=== PATIENT | male | born 2000 | race African-American/Black ===

== ENCOUNTER 2021-11-10 17:03 | Outpatient (CLI) | payer OTHER | END 2021-11-10 17:04 | disposition EMS.NT | LOC: EMS 17:03 | DX: R07.9 Chest pain, unspecified (principal) ==

== ENCOUNTER 2021-11-10 17:53 | Emergency (ER) | payer OTHER ==
[2021-11-10 18:35] LABS: BASOPHILS % (AUTO) 0.5 %; EOSINOPHILS % (AUTO) 0.3 %; HCT - HEMATOCRIT 48.3 % (42.0-52.0); HGB - HEMOGLOBIN 16.4 g/dL (14.0-18.0); LYMPHOCYTES # (AUTO) 2.3 10^3/uL (1.5-3.5); LYMPHOCYTES % (AUTO) 27.1 %; MEAN CORPUSCULAR VOLUME 85.5 fL (80.0-94.0); MEAN PLATELET VOLUME 10.8 fL (7.4-11.4); MONOCYTES # (AUTO) 0.3 10^3/uL (0.0-1.0); MONOCYTES % (AUTO) 3.6 %; NEUTROPHILS # (AUTO) 5.9 10^3/uL (1.5-6.6); NEUTROPHILS % (AUTO) 68.3 %; PLT - PLATELET COUNT 219 10^3/uL (130-450); RED BLOOD COUNT 5.65 10^6/uL (4.70-6.10); RED CELL DISTRIBUTION WIDTH 12.2 % (12.0-15.0); WHITE BLOOD COUNT 8.6 x10^3/uL (4.8-10.8)
--- NOTE | 2021-11-10 18:42 | XRAY Report ---
PROCEDURE: Chest 1 View X-Ray INDICATIONS: Chest Pain TECHNIQUE: One view of the chest was acquired. COMPARISON: None. FINDINGS: Surgical changes and devices: None. Lungs and pleura: No pleural effusions or pneumothorax. Right costophrenic angle is incompletely vis ualized. Lungs are clear. Mediastinum: Mediastinal contours appear normal. Heart size is normal. Bones and chest wall: No suspicious bony lesions. Overlying soft tissues appear unremarkable. IMPRESSION: No acute cardiopulmonary abnormality. Reviewed by: Yaya Akins MD on 11/10/2021 6:40 PM PDT Approved by: Yaya Akins MD on 11/10/2021 6:40 PM PDT Station ID: [id number]
[2021-11-10] MEDS ORDERED: LIDOCAINE VISCOUS 2% 15 ML UDC MM STA (18:43)
[2021-11-10] MEDS ORDERED: MAG HYDROX/AL HYDROX/SIMETH 30 ML UDC PO STA (18:43)
--- NOTE | 2021-11-10 18:45 | ED Physician Documentation ---
PD HPI CHEST PAIN - Stated complaint Stated Complaint: CP - Chief complaint Chief Complaint: Cardiac - History obtained from History obtained from: Patient - Additional information Additional information: Previously healthy 21-year-old gentleman with no history of heart disease. He vapes but does not smoke. Last week developed internal chest pressure that gets worse after eating heavy food. He did have a night of heavy drinking a few nights ago and that made the pain sharper after word when he got over the hangover the next day. No family history of heart disease. No recent travel. No shortness of breath. Pain is not exertional. Review of Systems Ten Systems: 10 systems reviewed and negative Cardiac: reports: Chest pain / pressure. denies: Palpitations Respiratory: denies: Dyspnea, Cough PD PAST MEDICAL HISTORY - Present Medications Home Medications: Ambulatory Orders Medication Instructions Recorded Confirmed Bupropion HCl [Wellbutrin Xl] 300 mg PO DAILY 11/10/21 11/10/21 Finasteride [Propecia] 1 mg PO DAILY 11/10/21 11/10/21 Omeprazole 40 mg PO DAILY #30 cap 11/10/21 - Allergies Allergies/Adverse Reactions: Allergies Allergy/AdvReac Type Severity Reaction Status Date / Time No Known Drug Allergies Allergy Verified 11/10/21 18:02 PD ED PE NORMAL - Vitals Vital signs reviewed: Yes - General General: Alert and oriented X 3, No acute distress - HEENT HEENT: PERRL, EOMI - Neck Neck: Supple, no meningeal sign, No bony TTP - Cardiac Cardiac: RRR, No murmur - Respiratory Respiratory: No respiratory distress, Clear bilaterally - Abdomen Abdomen: Normal bowel sounds, Soft, Non tender - Back Back: No CVA TTP, No spinal TTP - Derm Derm: Normal color, Warm and dry - Extremities Extremities: No edema, No calf tenderness / cord - Neuro Neuro: Alert and oriented X 3, Normal speech Results - Vitals Vitals: Vital Signs - 24 hr 11/10/21 11/10/21 17:58 18:01 Temperature 36.3 C L 36.6 C Heart Rate 72 72 Respiratory 18 18 Rate Blood Pressure 161/91 H 161/91 H O2 Saturation 99 99 Oxygen O2 Source Room air - EKG (time done) 1801 Rate: Rate (enter#) (71) Rhythm: NSR [place]: Normal Intervals: Normal [place] QRS: Normal Ischemia: ST elevation c/w repol. No: ST elevation c/w ischemia, ST depression - Labs Labs: Laboratory Tests 11/10/21 11/10/21 11/10/21 18:30 18:30 18:30 WBC 8.6 RBC 5.65 Hgb 16.4 Hct 48.3 MCV 85.5 MCH 29.0 MCHC 34.0 RDW 12.2 Plt Count 219 MPV 10.8 Neut # (Auto) 5.9 Lymph # (Auto) 2.3 [place] # (Auto) 0.3 Eos # (Auto) 0.0 Baso # (Auto) 0.0 Absolute Nucleated RBC 0.00 Nucleated RBC % 0.0 Sodium 141 Potassium 3.9 Chloride 106 Carbon Dioxide 24 Anion Gap 11.0 BUN 17 Creatinine 0.8 Estimated GFR (MDRD) 121 Glucose 89 Calcium 9.9 Total Bilirubin 0.8 AST 21 ALT 18 Alkaline Phosphatase 51 Troponin I High Sens 2.6 Total Protein 8.3 H Albumin 4.9 Globulin 3.4 Albumin/Globulin Ratio 1.4 Lipase 40 - Rads (name of study) Single view chest x-ray is unremarkable Radiology: EMP read contemporaneously PD MEDICAL DECISION MAKING - ED course ED course: Given the description, association with eating and the change in character after night of drinking I believe he probably has esophagitis/GERD causing the pain. His heart score is 0-1 depending on whether you consider vaping to be a risk factor for heart disease. 21-year-old gentleman with chest pain that sounds like reflux based on the association with eating, worsening after drinking alcohol. He felt much better after a GI cocktail. Cardiac work-up negative. Departure - Departure Disposition: 01 Home, Self Care Clinical Impression: Atypical chest pain Condition: Good Record reviewed to determine appropriate education?: Yes Instructions: ED GERD Prescriptions: Omeprazole 40 mg PO DAILY #30 cap Comments: As discussed, it seems that given the character of your pain and its triggers as well as the fact that she got better with a mixture of Maalox and lidocaine here would suggest that your pain is from stomach acid such as reflux. Return if you worsen but in the meantime I am putting you on something for stomach acid. [place] Other triggers to avoid to prevent this from getting worse would be caffeine, spicy food, nicotine.
[2021-11-10 19:03] LABS: ALBUMIN 4.9 g/dL (3.2-5.5); ALBUMIN/GLOBULIN RATIO 1.4 (1.0-2.2); BILIRUBIN,TOTAL 0.8 mg/dL (0.2-1.0); CALCIUM 9.9 mg/dL (8.5-10.3); CREATININE 0.8 mg/dL (0.6-1.2); POTASSIUM 3.9 mmol/L (3.5-5.0); TOTAL PROTEIN 8.3 g/dL (6.7-8.2)
[2021-11-10] MEDS ORDERED: PANTOPRAZOLE 40 MG TABLET PO STA (19:11)
[2021-11-10 19:21] VITALS: BP 140/90
== END 2021-11-10 19:19 | disposition home or self-care (01) ==
LOC: ED 17:53
DX: R07.89 Other chest pain (principal); F17.290 Nicotine dependence, other tobacco product, uncomplicated
CPT/HCPCS: 36415; 71045; 80053; 83690; 84484; 85025; 93005; 99284; A9270